=== PATIENT | female | born 1965 | race Caucasian/White ===

== ENCOUNTER 2022-12-05 16:59 | Emergency (ER) | payer BC, SELFPAY ==
--- NOTE | ~2022-12-05 | CT_ITS ---
EXAMINATION: CT SOFT TISSUE NECK WITH CONTRAST CLINICAL INFORMATION: Left lower dental pain, neck swelling COMPARISON: None. TECHNIQUE: Following the administration of 60 mL of Omnipaque 350 intravenous contrast, helical imaging was performed in the axial plane with generation of coronal and sagittal reformatted images. This CT examination was performed using dose optimization techniques as appropriate, variously including the following: *Automated exposure control. *Adjustment of mA and/or kV according to patient size (this includes techniques or standardized protocols for targeted exams where dose is matched to indication/reason for exam; i.e. extremities or head). *Use of iterative reconstruction technique. DLP: 738 mGy-cm. FINDINGS: Carious left mandibular first molar tooth and a periapical lucency associated with the posterior left mandibular molar tooth with thinning and suspected dehiscence along the subjacent lingual cortex of the mandible (image 53, series 5). There is asymmetric left floor of mouth edema. There is slight asymmetric enlargement and hyperenhancement of the left submandibular gland and fat stranding within the left submandibular soft tissues and marginating the inferior pole of the left parotid gland with asymmetric thickening of the left platysma muscle. No peripherally enhancing fluid collection to suggest abscess. Asymmetric prominent left level 1B lymph nodes, probably reactive, bilateral mildly prominent level 2A lymph nodes, and additional nonpathologic size criteria lymph nodes throughout the left neck extending into the medial supraclavicular earl stations. The right parotid and submandibular glands are normal. Two benign-appearing foci of dystrophic calcification in the left facial subcutaneous soft tissues. The fat planes of the skull base and soft tissues of the nasopharynx are unremarkable. The paranasal sinuses are well aerated. Trace inferior right mastoid effusion. The temporomandibular joints are normal. The oropharynx, hypopharynx, and larynx are unremarkable, noting the vocal cords are opposed at time of imaging limiting assessment of the glottis. The thyroid gland is normal. No suspicious pulmonary nodule. Reversal of the normal cervical lordosis with multilevel moderate to severe discogenic disease and cervical spondylosis likely on a background of congenital spinal canal stenosis with resultant multilevel moderate mid to lower cervical spinal canal stenosis and varying degrees of moderate to high-grade neural foraminal stenosis. Partially retropharyngeal course of the left cervical internal carotid artery. The imaged portions of the brain parenchyma are unremarkable. CT/CT soft tissue neck w IV con IMPRESSION: 1. Carious left mandibular first molar tooth and a periapical lucency associated with the posterior left mandibular molar tooth with suspected dehiscence along the subjacent lingual cortex of the mandible. Associated phlegmonous/cellulitic changes in the left floor of mouth and left neck spaces without odontogenic abscess. Reactive left cervical chain lymphadenopathy. 2. Multilevel moderate to severe discogenic disease and cervical spondylosis likely on a background of congenital spinal canal stenosis with resultant multilevel moderate mid to lower cervical spinal canal stenosis and varying degrees of moderate to high-grade neural foraminal stenosis.
[2022-12-05 18:11] VITALS: BP 145/89; PULSE 87; RESP 18; TEMP 36.7; O2SAT 96; BMI 42.0
--- NOTE | 2022-12-05 18:11 | ED.GENADULT ---
HPI - General Adult General Chief complaint: Dental/Oral <KIM Avelar - Last Filed: 12/05/22 18:15> Stated complaint: Jaw infection dr required for her to go to er <KIM Avelar - Last Filed: 12/05/22 18:15> Time Seen by Provider: 12/05/22 21:29 <KIM Avelar - Last Filed: 12/05/22 18:15> Source: patient <Ivania Mane MD - Last Filed: 12/05/22 23:14> Mode of arrival: ambulatory <Ivania Mane MD - Last Filed: 12/05/22 23:14> Limitations: no limitations <Ivania Mane MD - Last Filed: 12/05/22 23:14> History of Present Illness HPI narrative: 57-year-old female presented to the emergency department for evaluation of left facial swelling and possible dental infection. Patient had dental infection to lower left 2nd molar tooth that caused gum infection patient was started by her dentist on 10 days course of penicillin and 5 days course of prednisone patient showed some improvement patient off antibiotic for the past 5 days feels infection is spreading to her lower neck and behind her left ear, patient has no fever or chills, patient appeared nontoxic in the emergency department, able to speak in a full sentence and able to swallow her own saliva with no reported change of her voice. <Ivania Mane MD - Last Filed: 12/05/22 23:14> Related Data Home medications: Previous Rx's Medication Instructions Recorded clindamycin HCl 300 mg capsule 300 mg PO TID #20 caps 12/05/22 <KIM Avelar - Last Filed: 12/05/22 18:15> Allergies/adverse reactions: Allergies Allergy/AdvReac Type Severity Reaction Status Date / Time Sulfa (Sulfonamide Allergy Unknown Unknown Verified 12/05/22 18:16 Antibiotics) <KIM Avelar - Last Filed: 12/05/22 18:15> Review of Systems Review of Systems: All other systems are reviewed and are negative Constitutional: Reports as per HPI and Reports no additional constitutional complaints Eyes: Reports as per HPI and Reports no additional eye complaints Reports system reviewed and no additional complaints, except as documented Cardiovascular: Reports as per HPI and Reports no additional cardiovascular complaints Respiratory: Reports as per HPI and Reports no additional respiratory complaints Gastrointestinal: Reports as per HPI and Reports no additional gastrointestinal complaints Genitourinary: Reports no additional female genitourinary complaints Musculoskeletal: Reports no additional musculoskeletal complaints Skin/Breast: Reports system reviewed and no additional complaints, except as docu Psychiatric: Reports no additional psychiatric complaints Endocrine: Reports no additional endocrine complaints Hematologic/Lymphatic: Reports no additional hematologic/lymphatic complaints Allergic/Immunologic: Reports no additional allergic/immunologic complaints Reports system reviewed and no additional complaints, except as documented and Reports Abnormal speech present <Ivania Mane MD - Last Filed: 12/05/22 23:14> [facility] Social History Social History: Social History Alcohol intake: current Alcohol intake frequency: 0-2 drinks per day Smoked in Last 30 Days: No Use of substances other than those prescribed or required for medical reasons: No Advance Directives: No Advance Directives Information Provided: No Patient : No <KIM Avelar - Last Filed: 12/05/22 18:15> Physical Exam ED Vital Signs: Vital Signs - 24 hr 12/05/22 18:11 Temperature 98.0 F Pulse Rate 87 Respiratory Rate 18 Blood Pressure 145/89 H Pulse Oximetry 96 Oxygen Delivery Method Room Air BMI result Body Mass Index 42.0 <KIM Avelar - Last Filed: 12/05/22 18:15> Vital Signs - 24 hr 12/05/22 18:11 Temperature 98.0 F Pulse Rate 87 Respiratory Rate 18 Blood Pressure 145/89 H Pulse Oximetry 96 Oxygen Delivery Method Room Air BMI result Body Mass Index 42.0 vital signs have been reviewed as appeared to be correct. Blood pressure normal. Heart rate normal. Respiration rate normal. Temperature normal. Oxygen saturation normal. <Ivania Mane MD - Last Filed: 12/05/22 23:14> Appearance: Alert. Oriented X3. No acute distress. Head: Normal external exam. Normocephalic. Atraumatic. No Saxena signs noted. No raccoon eyes noted , mild left submandibular swelling, mouth floor is not swollen, no tongue protrusion. Eyes: PERRLA. EOMI. Conjunctiva and sclera normal. Eyelids normal. ENT: TM's Normal. Pharynx normal. Uvula midline. Moist mucous membranes. No trismus noted. No drooling noted. No muffled voice noted. Neck: Normal inspection. Neck supple. FROM. No adenopathy. Thyroid Normal. No meningeal signs. No neck mass noted. CVS: Normal heart rate and rhythm. Heart sound normal. No murmurs noted. Pulses normal throughout. Respiratory: No respiratory distress. Painless inspiration. Breath sounds normal. No wheezes/rales/rhonchi noted. Chest nontender. No accessory muscle usage noted or decreased air movement noted. Abdomen: Soft and nontender. Bowel sounds normal in all 4 quadrants. No distention noted. No organomegaly noted. No visible injury noted. Back: No CVA tenderness. Full range of motion noted. Skin: Skin warm and dry. Normal skin color. Normal skin turgor. No rashes/lesions/lacerations noted. Extremities: No lower extremity edema. Extremities exhibit normal range of motion. Extremities nontender. Neuro: Oriented X 3. Cranial nerve exam: II-XII are grossly intact No motor deficit. No sensory deficit. Reflexes normal. <Ivania Mane MD - Last Filed: 12/05/22 23:14> Course Course Course Narrative: RME - 57 yo female presents to the ER from her dentist for evaluation of left jaw pain and infection for the last 2 weeks. Dentist told her the infection needs IV antibiotics and concern it traveled into the bone. She has completed a course of penicillin & prednisone which helped the swelling in her face and neck. Reports ongoing pain, swelling, trismus, pain radiating up into the head and down into the neck. Airway patent, handling secretions normally. Nontoxic appearing in triage. Will get labs and CT scan for further evaluation. <KIM Avelar - Last Filed: 12/05/22 18:15> Reevaluation(s) Reevaluation #1: 57-year-old female presented with left facial cellulitis secondary to dental infection patient had finished a course of penicillin and course of prednisone in the past with mild improvement of the cellulitis and slow progression to submandibular area, patient hemodynamically stable patent airways, no sepsis or toxic looking in the emergency department. Patient is already scheduled to see her dentist in the morning for dental extraction, will start the patient on clindamycin no further need for another course of prednisone. <Ivania Mane MD - Last Filed: 12/05/22 23:14> Time: 23:08 <Ivania Mane MD - Last Filed: 12/05/22 23:14> Medications Administered Discontinued Medications Generic Name Dose Route Start Last Admin Trade Name Freq PRN Reason Stop Dose Admin Clindamycin Phosphate 600 mg in 50 mls @ 100 mls/hr 12/05/22 21:40 12/05/22 23:05 Cleocin IV 12/05/22 22:09 Infused ONCE ONE Infusion Iohexol 100 ml 12/05/22 21:54 12/05/22 21:54 Iohexol 350 Mg/Ml 100 Ml Infus..Btl IV 12/05/22 21:55 60 ml ONCE ONE Administration Methylprednisolone Sodium Succinate 125 mg 12/05/22 21:40 12/05/22 22:36 Methylprednisolone Sod Succ 125 Mg/2 Ml Vial IVPUSH 12/05/22 21:41 125 mg ONCE ONE Administration <KIM Avelar - Last Filed: 12/05/22 18:15> Medications Administered Discontinued Medications Generic Name Dose Route Start Last Admin Trade Name Freq PRN Reason Stop Dose Admin Clindamycin Phosphate 600 mg in 50 mls @ 100 mls/hr 12/05/22 21:40 12/05/22 23:05 Cleocin IV 12/05/22 22:09 Infused ONCE ONE Infusion Iohexol 100 ml 12/05/22 21:54 12/05/22 21:54 Iohexol 350 Mg/Ml 100 Ml Infus..Btl IV 12/05/22 21:55 60 ml ONCE ONE Administration Methylprednisolone Sodium Succinate 125 mg 12/05/22 21:40 12/05/22 22:36 Methylprednisolone Sod Succ 125 Mg/2 Ml Vial IVPUSH 12/05/22 21:41 125 mg ONCE ONE Administration <Ivania Mane MD - Last Filed: 12/05/22 23:14> Medical Decision Making Differential Diagnosis Differential Diagnoses: The differential diagnosis associated with the presentation includes ( Itz's angina, facial cellulitis, soft tissue neck abscess.) <Ivania Mane MD - Last Filed: 12/05/22 23:14> Lab Data MDM Lab Attestation statement: I reviewed the patient's lab results. <Ivania Mane MD - Last Filed: 12/05/22 23:14> Result Diagrams: 12/05/22 19:34 12/05/22 19:35 <KIM Avelar - Last Filed: 12/05/22 18:15> Labs: Lab Results 12/05/22 12/05/22 12/05/22 Range/Units 19:34 19:35 19:35 WBC 10.4 (4.8-10.8) X10*3/uL RBC 4.31 (4.20-5.50) X10*6/uL Hgb 13.8 (12.0-16.0) g/dl Hct 41.8 (37.0-47.0) % MCV 97.0 (80.0-98.0) fL MCH 32.0 (27.0-33.0) pg MCHC 33.0 (31.0-35.0) g/dl RDW 14.0 (11.0-16.0) % Plt Count 304 (160-400) X10*3/uL MPV 9.2 L (9.4-12.3) fL Immature Gran % (Auto) 0.3 (0.0-0.4) % Neut % (Auto) 69.7 (45-73) % Lymph % (Auto) 18.9 L (20-40) % [place] % (Auto) 7.3 (2-11) % Eos % (Auto) 3.3 (0-4) % Baso % (Auto) 0.5 (0-2) % Lymph # (Auto) 2.0 (1.2-4.9) X10*3/uL [place] # (Auto) 0.8 (0.1-1.2) X10*3/uL Eos # (Auto) 0.3 (0.0-0.4) X10*3/uL Baso # (Auto) 0.1 (0.0-0.2) X10*3/uL Abs Immat Gran (auto) 0.03 (0.00-0.03) X10*3/uL Absolute Neuts (auto) 7.3 (2.0-8.3) x10*3/uL Absolute Nucleated RBC 0.000 (0.0-0.012) X10*3/uL Nucleated RBC % (auto) 0.0 (0.0-0.2) /100WBC ESR 18 (0-20) MM/HR Sodium 143 (135-145) mmol/L Potassium 4.4 (3.3-5.1) mmol/L Chloride 109 H (96-108) mmol/L Carbon Dioxide 24 (22-29) mmol/L Anion Gap 14 (12-20) BUN 16 (9-16) mg/dL Creatinine 0.66 (0.5-1.4) mg/dL Estim Creat Clear Calc 109.1 Estimated GFR > 60 Random Glucose 77 (60-115) mg/dL Lactic Acid (0.5-2.0) mmol/L Calcium 9.4 (8.4-10.2) mg/dL Magnesium 2.3 (1.6-2.6) mg/dL Total Bilirubin 0.3 (0.0-1.0) mg/dL Direct Bilirubin < 0.2 (0.0-0.5) mg/dL AST 17 (5-31) U/L ALT 14 (0-31) U/L Alkaline Phosphatase 87 (39-117) U/L C-Reactive Protein 1.14 H (< or = 0.50) mg/dL Total Protein 6.7 (6.5-8.0) g/dL Albumin 3.9 (3.5-5.0) g/dL COVID-19 (PABLO) (Negative) COVID-19 Clin Com 12/05/22 12/05/22 Range/Units 19:35 19:35 WBC (4.8-10.8) X10*3/uL RBC (4.20-5.50) X10*6/uL Hgb (12.0-16.0) g/dl Hct (37.0-47.0) % MCV (80.0-98.0) fL MCH (27.0-33.0) pg MCHC (31.0-35.0) g/dl RDW (11.0-16.0) % Plt Count (160-400) X10*3/uL MPV (9.4-12.3) fL Immature Gran % (Auto) (0.0-0.4) % Neut % (Auto) (45-73) % Lymph % (Auto) (20-40) % [place] % (Auto) (2-11) % Eos % (Auto) (0-4) % Baso % (Auto) (0-2) % Lymph # (Auto) (1.2-4.9) X10*3/uL [place] # (Auto) (0.1-1.2) X10*3/uL Eos # (Auto) (0.0-0.4) X10*3/uL Baso # (Auto) (0.0-0.2) X10*3/uL Abs Immat Gran (auto) (0.00-0.03) X10*3/uL Absolute Neuts (auto) (2.0-8.3) x10*3/uL Absolute Nucleated RBC (0.0-0.012) X10*3/uL Nucleated RBC % (auto) (0.0-0.2) /100WBC ESR (0-20) MM/HR Sodium (135-145) mmol/L Potassium (3.3-5.1) mmol/L Chloride (96-108) mmol/L Carbon Dioxide (22-29) mmol/L Anion Gap (12-20) BUN (9-16) mg/dL Creatinine (0.5-1.4) mg/dL Estim Creat Clear Calc Estimated GFR Random Glucose (60-115) mg/dL Lactic Acid 1.5 (0.5-2.0) mmol/L Calcium (8.4-10.2) mg/dL Magnesium (1.6-2.6) mg/dL Total Bilirubin (0.0-1.0) mg/dL Direct Bilirubin (0.0-0.5) mg/dL AST (5-31) U/L ALT (0-31) U/L Alkaline Phosphatase (39-117) U/L C-Reactive Protein (< or = 0.50) mg/dL Total Protein (6.5-8.0) g/dL Albumin (3.5-5.0) g/dL COVID-19 (PABLO) Negative (Negative) COVID-19 Clin Com See Note <KIM Avelar - Last Filed: 12/05/22 18:15> Lab Results 02/13/23 02/13/23 02/13/23 Range/Units 19:34 19:35 19:35 WBC 10.4 (4.8-10.8) X10*3/uL RBC 4.31 (4.20-5.50) X10*6/uL Hgb 13.8 (12.0-16.0) g/dl Hct 41.8 (37.0-47.0) % MCV 97.0 (80.0-98.0) fL MCH 32.0 (27.0-33.0) pg MCHC 33.0 (31.0-35.0) g/dl RDW 14.0 (11.0-16.0) % Plt Count 304 (160-400) X10*3/uL MPV 9.2 L (9.4-12.3) fL Immature Gran % (Auto) 0.3 (0.0-0.4) % Neut % (Auto) 69.7 (45-73) % Lymph % (Auto) 18.9 L (20-40) % [place] % (Auto) 7.3 (2-11) % Eos % (Auto) 3.3 (0-4) % Baso % (Auto) 0.5 (0-2) % Lymph # (Auto) 2.0 (1.2-4.9) X10*3/uL [place] # (Auto) 0.8 (0.1-1.2) X10*3/uL Eos # (Auto) 0.3 (0.0-0.4) X10*3/uL Baso # (Auto) 0.1 (0.0-0.2) X10*3/uL Abs Immat Gran (auto) 0.03 (0.00-0.03) X10*3/uL Absolute Neuts (auto) 7.3 (2.0-8.3) x10*3/uL Absolute Nucleated RBC 0.000 (0.0-0.012) X10*3/uL Nucleated RBC % (auto) 0.0 (0.0-0.2) /100WBC ESR 18 (0-20) MM/HR Sodium 143 (135-145) mmol/L Potassium 4.4 (3.3-5.1) mmol/L Chloride 109 H (96-108) mmol/L Carbon Dioxide 24 (22-29) mmol/L Anion Gap 14 (12-20) BUN 16 (9-16) mg/dL Creatinine 0.66 (0.5-1.4) mg/dL Estim Creat Clear Calc 109.1 Estimated GFR > 60 Random Glucose 77 (60-115) mg/dL Lactic Acid (0.5-2.0) mmol/L Calcium 9.4 (8.4-10.2) mg/dL Magnesium 2.3 (1.6-2.6) mg/dL Total Bilirubin 0.3 (0.0-1.0) mg/dL Direct Bilirubin < 0.2 (0.0-0.5) mg/dL AST 17 (5-31) U/L ALT 14 (0-31) U/L Alkaline Phosphatase 87 (39-117) U/L C-Reactive Protein 1.14 H (< or = 0.50) mg/dL Total Protein 6.7 (6.5-8.0) g/dL Albumin 3.9 (3.5-5.0) g/dL COVID-19 (PABLO) (Negative) COVID-19 Clin Com 12/05/22 12/05/22 Range/Units 19:35 19:35 WBC (4.8-10.8) X10*3/uL RBC (4.20-5.50) X10*6/uL Hgb (12.0-16.0) g/dl Hct (37.0-47.0) % MCV (80.0-98.0) fL MCH (27.0-33.0) pg MCHC (31.0-35.0) g/dl RDW (11.0-16.0) % Plt Count (160-400) X10*3/uL MPV (9.4-12.3) fL Immature Gran % (Auto) (0.0-0.4) % Neut % (Auto) (45-73) % Lymph % (Auto) (20-40) % [place] % (Auto) (2-11) % Eos % (Auto) (0-4) % Baso % (Auto) (0-2) % Lymph # (Auto) (1.2-4.9) X10*3/uL [place] # (Auto) (0.1-1.2) X10*3/uL Eos # (Auto) (0.0-0.4) X10*3/uL Baso # (Auto) (0.0-0.2) X10*3/uL Abs Immat Gran (auto) (0.00-0.03) X10*3/uL Absolute Neuts (auto) (2.0-8.3) x10*3/uL Absolute Nucleated RBC (0.0-0.012) X10*3/uL Nucleated RBC % (auto) (0.0-0.2) /100WBC ESR (0-20) MM/HR Sodium (135-145) mmol/L Potassium (3.3-5.1) mmol/L Chloride (96-108) mmol/L Carbon Dioxide (22-29) mmol/L Anion Gap (12-20) BUN (9-16) mg/dL Creatinine (0.5-1.4) mg/dL Estim Creat Clear Calc Estimated GFR Random Glucose (60-115) mg/dL Lactic Acid 1.5 (0.5-2.0) mmol/L Calcium (8.4-10.2) mg/dL Magnesium (1.6-2.6) mg/dL Total Bilirubin (0.0-1.0) mg/dL Direct Bilirubin (0.0-0.5) mg/dL AST (5-31) U/L ALT (0-31) U/L Alkaline Phosphatase (39-117) U/L C-Reactive Protein (< or = 0.50) mg/dL Total Protein (6.5-8.0) g/dL Albumin (3.5-5.0) g/dL COVID-19 (PABLO) Negative (Negative) COVID-19 Clin Com See Note <Ivania Mane MD - Last Filed: 12/05/22 23:14> Independent Interpretation I performed an independent interpretation of an: CT Scan ( Soft tissue neck CT:1. Carious left mandibular first molar tooth and a periapical lucency associated with the posterior left mandibular molar tooth with suspected dehiscence along the subjacent lingual cortex of the mandible. Associated phlegmonous/cellulitic changes in the left floor of mouth an) <Ivania Mane MD - Last Filed: 12/05/22 23:14> Radiology Impression Discussion of test interpretation with radiology: I have reviewed the radiologist's reading. <Ivania Mane MD - Last Filed: 12/05/22 23:14> Discharge Plan Discharge Clinical Impression: Dental caries, Facial cellulitis <KIM Avelar - Last Filed: 12/05/22 18:15> Patient Disposition: Home, Self-Care <KIM Avelar - Last Filed: 12/05/22 18:15> Instructions: Cellulitis (ED) <KIM Avelar - Last Filed: 12/05/22 18:15> Additional Instructions: As we discussed it is very important to follow-up with your dentist tomorrow morning for dental extraction. <KIM Avelar - Last Filed: 12/05/22 18:15> Prescriptions: New clindamycin HCl 300 mg capsule 300 mg PO TID Qty: 20 0RF <KIM Avelar - Last Filed: 12/05/22 18:15>
[2022-12-05 19:39] LABS: MANUAL DIFF FLAG NO
[2022-12-05 19:40] LABS: Basophils Absolute Auto 0.1 X10*3/uL (0.0-0.2); Basophils Percent Auto 0.5 % (0-2); Eosinophils Absolute Auto 0.3 X10*3/uL (0.0-0.4); Eosinophils Percent Auto 3.3 % (0-4); Hematocrit 41.8 % (37.0-47.0); Hemoglobin 13.8 g/dl (12.0-16.0); Imm Gran Abs Auto 0.03 X10*3/uL (0.00-0.03); Imm Gran Pct Auto 0.3 % (0.0-0.4); Lymphocytes Percent Auto 18.9 % (20-40); Mean Platelet Volume 9.2 fL (9.4-12.3); Monocytes Absolute Auto 0.8 X10*3/uL (0.1-1.2); Monocytes Percent Auto 7.3 % (2-11); Neutrophils Absolute Auto 7.3 x10*3/uL (2.0-8.3); Neutrophils Percent Auto 69.7 % (45-73); Platelet Count 304 X10*3/uL (160-400); Red Blood Count 4.31 X10*6/uL (4.20-5.50); White Blood Count 10.4 X10*3/uL (4.8-10.8)
[2022-12-05 19:57] LABS: Lactic Acid 1.5 mmol/L (0.5-2.0)
[2022-12-05 20:02] LABS: COVID-19 Test Negative (Negative); IDNOW Serial# 55D5AD1C
[2022-12-05 20:03] LABS: Alanine Aminotransferase 14 U/L (0-31); Albumin Level 3.9 g/dL (3.5-5.0); Alkaline Phosphatase 87 U/L (39-117); Anion Gap 14 (12-20); Aspartate Amino Transferase 17 U/L (5-31); Bilirubin Direct < 0.2 mg/dL (0.0-0.5); Bilirubin Total 0.3 mg/dL (0.0-1.0); Blood Urea Nitrogen 16 mg/dL (9-16); C Reactive Protein 1.14 mg/dL (< or = 0.50); Calcium 9.4 mg/dL (8.4-10.2); Carbon Dioxide 24 mmol/L (22-29); Chloride 109 mmol/L (96-108); Creatinine Clr Calc Pharmacy 109.1; Estimated Glomerular Filt Rate > 60; Glucose Random 77 mg/dL (60-115); Magnesium 2.3 mg/dL (1.6-2.6); Potassium 4.4 mmol/L (3.3-5.1); Sodium 143 mmol/L (135-145); Total Protein 6.7 g/dL (6.5-8.0)
[2022-12-05 20:13] LABS: Erythrocyte Sedimentation Rate 18 MM/HR (0-20)
[2022-12-05] MEDS: iohexoL 350 MG/ML 100 ML INFUS..BTL IV (21:54)
[2022-12-05] MEDS: Clindamycin Phosphate/D5W 600 MG/50 ML PIGGYBACK 100 MG IV (22:36)
[2022-12-05] MEDS: methylPREDNISolone Sod Succ 125 MG/2 ML VIAL IVPUSH (22:36)
== END 2022-12-05 23:42 | disposition home or self-care (01) ==
PROVIDERS: Physician Assistant; Emergency Provider Emergency Medicine
DX: K02.9 Dental caries, unspecified (principal); L03.211 Cellulitis of face; Z20.822 Contact with and (suspected) exposure to COVID-19
CPT/HCPCS: 36415; 70491; 80048; 80076; 83605; 83735; 85025; 85652; 86140; 87040; 87635; 96365; 96375; 99284; J2930; Q9967